=== PATIENT | female | born 1950 | race Caucasian/White ===

== ENCOUNTER → 2017-12-04 | Outpatient (CLI) | payer MEDICARE, OTHER ==
--- NOTE | 2017-12-04 16:28 | KCIC ---
MRI Lumbar Spine without contrast History: Low back pain, right leg pain after lifting injury, previous laminectomy Technique: Multiplanar, multi sequential noncontrast MR imaging was performed of the lumbar spine. Contrast: None Comparison: None Findings: Lumbar vertebral body stature is maintained. There is grade 1 anterior spondylolisthesis at L3-4, negligible anterior spondylolisthesis L5-S1. There is advanced degenerative disc disease L4-5 and to a somewhat lesser degree L5-S1 and L3-4, minimally L1-2. Conus terminates at L1. There is no significant marrow edema of the vertebral bodies, mild edema right L4 pedicle. There is mild degenerative endplate change and trace L4-5 endplate edema. There are T2 hyperintense foci of the left renal pelvis which may be due to cysts. L1-L2: There is negligible posterior bulge. Spinal canal and neural foramina are adequate. L2-L3: Spinal canal and neural foramina are adequate. There is mild buckling of the ligamentum flavum. L3-L4: There is mild partial uncovering of the posterior aspect of the disc due to spondylolisthesis with minimal bulge. There is mild neural foramina compromise bilaterally somewhat greater on the left. There is mild buckling of the ligamentum flavum and facet degenerative change. Spinal canal is adequate. There is mild prominence of posterior epidural fat. There is small right laminectomy defect. L4-L5: There is minimal disc osteophyte complex. There is right laminectomy defect. Spinal canal is adequate. There is mild narrowing of the inferior right neural foramen, left neural foramen adequate. L5-S1: There is protrusion eccentric to the far right lateral recess, mild indentation upon the ventral thecal sac and contact of the descending right S1 nerve root, mild narrowing of the far right lateral recess. Protrusion measures about 0.7 cm AP by 0.5 cm CC by 1.3 cm transverse. There is mild narrowing of the inferior right neural foramen, also very minimal narrowing of the inferior proximal left neural foramen. Impression: 1. Protrusion in the far right lateral recess at L5-S1 contacts the descending right S1 nerve root, mild narrowing of the inferior proximal right neural foramen. 2. There is more advanced degenerative disc disease at L4-5 and to lesser degree at L3-4 and L5-S1 and minimally L1-2. 3. There is grade 1 anterior spondylolisthesis L3-4, negligible anterior spondylolisthesis L5-S1. 4. There is mild neural foramina compromise as stated bilaterally at L3-4 and L5-S1 and on the right at L4-5. Electronically signed by: Herman Lo MD (12/04/2017 4:25 PM) [id number]
== END | disposition home or self-care (01) ==
LOC: KCIC MRI 15:22
PROVIDERS: ATTEND Family Medicine
DX: M51.27 Other intervertebral disc displacement, lumbosacral region (principal); M51.36 Other intervertebral disc degeneration, lumbar region; M43.16 Spondylolisthesis, lumbar region; M48.07 Spinal stenosis, lumbosacral region
CPT/HCPCS: 72148